=== PATIENT | male | born 1945 | race Caucasian/White ===

== ENCOUNTER 2016-10-13 14:54 | Inpatient (IN) | payer MEDICARE, OTHER ==
[2016-10-13] MEDS ORDERED: SODIUM CHLORIDE 0.9% 500 ML IV STA (15:00)
--- NOTE | 2016-10-13 15:16 | ED ---
General Adult HPI - General Chief complaint: Seizure Stated complaint: Seizure Time Seen by Provider: 10/13/16 15:00 Source: patient, family, RN notes reviewed Mode of arrival: EMS Limitations: no limitations - History of Present Illness Initial comments: This is a 70-year-old male with a past medical history significant for seizures. states he takes seizure medication but she doesn't know what they are. states he does not have seizures that often however today he did have a seizure and it stopped on its own EMS was called when they arrived scene he was post ictal. When the patient was in the ambulance had another seizure they gave him 5 of Versed. The seizures stopped after the Versed. Patient remains postictal at this time. states recently he's been feeling fine is been no fever chills or cough. His been BEEN no illegal drug use. The patient has not complained of any chest pain or abdominal pain there's been no complaints of any dysuria hematuria urinary frequency. states his postictal states usually lasts hours. - Related Data Home Medications Medication Instructions Recorded Confirmed Lisinopril [Prinivil] 5 mg PO DAILY 03/28/14 10/13/16 Simvastatin [Zocor] 40 mg PO DAILY 03/28/14 10/13/16 levETIRAcetam [Keppra] 750 mg PO HS 03/28/14 10/13/16 Clopidogrel [Plavix] 75 mg PO DAILY 10/13/16 10/13/16 Metoprolol Succinate (ER) [Toprol 50 mg PO DAILY 10/13/16 10/13/16 Xl] levETIRAcetam [Keppra] 500 mg PO QAM 10/13/16 10/13/16 Allergies Allergy/AdvReac Type Severity Reaction Status Date / Time No Known Allergies Allergy Verified 10/13/16 14:55 Review of Systems ROS Statement: Those systems with pertinent positive or pertinent negative responses have been documented in the HPI. ROS Other: All systems not noted in ROS Statement are negative. Past Medical History Past Medical History: Hyperlipidemia, Seizure Disorder History of Any Multi-Drug Resistant Organisms: None Reported Past Surgical History: No Surgical Hx Reported Past Psychological History: No Psychological Hx Reported Smoking Status: Current every day smoker Past Alcohol Use History: None Reported Past Drug Use History: None Reported General Exam - General Exam Comments Initial Comments: GENERAL: Patient is well-developed and well-nourished. Patient is nontoxic and well- hydrated and is in no acute distress. ENT: Neck is soft and supple. No significant lymphadenopathy is noted. Oropharynx is clear. Moist mucous membranes. Neck has full range of motion without eliciting any pain. EYES: The sclera were anicteric and conjunctiva were pink and moist. Extraocular movements were intact and pupils were equal round and reactive to light. Eyelids were unremarkable. PULMONARY: Unlabored respirations. Good breath sounds bilaterally. No audible rales rhonchi or wheezing was noted. CARDIOVASCULAR: There is a regular rate and rhythm without any murmurs gallops or rubs. ABDOMEN: Soft and nontender with normal bowel sounds. SKIN: Skin is clear with no lesions or rashes and otherwise unremarkable. NEUROLOGIC: Patient postictal right now he responds to painful stimuli and loud verbal Cranial nerves II through XII are grossly intact. Motor and sensory are also intact. MUSCULOSKELETAL: Normal extremities with adequate strength and full range of motion. No lower extremity swelling or edema. No calf tenderness. LYMPHATICS: No significant lymphadenopathy is noted PSYCHIATRIC: Unable to assess at this time. Limitations: no limitations Course Vital Signs 10/13/16 10/13/16 14:55 15:04 Temperature 97.5 F L Pulse Rate 90 78 Respiratory 20 20 Rate Blood Pressure 77/50 94/55 O2 Sat by Pulse 90 L 95 Oximetry Medical Decision Making - Medical Decision Making EKG shows normal sinus rhythm at 76 bpm [place] interval is 152 QRS is 82 QT interval 398 QTC is 447. Patient's EKG shows no ST segment elevation or depression or T wave abnormalities are noted. - Lab Data Result diagrams: 10/13/16 15:15 10/13/16 15:15 Lab Results 10/13/16 10/13/16 10/13/16 Range/Units 15:15 15:15 15:47 WBC 4.9 (3.8-10.6) k/uL RBC 4.44 (4.30-5.90) m/uL Hgb 14.1 (13.0-17.5) gm/dL Hct 40.7 (39.0-53.0) % MCV 91.6 (80.0-100.0) fL MCH 31.8 (25.0-35.0) pg MCHC 34.8 (31.0-37.0) g/dL RDW 12.9 (11.5-15.5) % Plt Count 129 L (150-450) k/uL Neutrophils % 76 % Lymphocytes % 16 % Monocytes % 5 % Eosinophils % 1 % Basophils % 0 % Neutrophils # 3.7 (1.3-7.7) k/uL Lymphocytes # 0.8 L (1.0-4.8) k/uL Monocytes # 0.3 (0-1.0) k/uL Eosinophils # 0.1 (0-0.7) k/uL Basophils # 0.0 (0-0.2) k/uL Sodium 142 (137-145) mmol/L Potassium 4.0 (3.5-5.1) mmol/L Chloride 108 H (98-107) mmol/L Carbon Dioxide 16 L (22-30) mmol/L Anion Gap 18 mmol/L BUN 10 (9-20) mg/dL Creatinine 1.00 (0.66-1.25) mg/dL Est GFR (MDRD) Af Amer >60 (>60 ml/min/1.73 sqM) Est GFR (MDRD) Non-Af >60 (>60 ml/min/1.73 sqM) Glucose 133 H (74-99) mg/dL Calcium 9.5 (8.4-10.2) mg/dL Total Bilirubin 0.6 (0.2-1.3) mg/dL AST 32 (17-59) U/L ALT 25 (21-72) U/L Alkaline Phosphatase 68 (38-126) U/L Total Protein 6.9 (6.3-8.2) g/dL Albumin 4.2 (3.5-5.0) g/dL Urine Color Yellow Urine Appearance Clear (Clear) Urine pH 6.0 (5.0-8.0) Ur Specific [place] 1.007 (1.001-1.035) Urine Protein 1+ H (Negative) Urine Glucose (UA) Negative (Negative) Urine Ketones Negative (Negative) Urine Blood Negative (Negative) Urine Nitrite Negative (Negative) Urine Bilirubin Negative (Negative) Urine Urobilinogen <2.0 (<2.0) mg/dL Ur Leukocyte Esterase Negative (Negative) Urine RBC 1 (0-5) /hpf Urine WBC 1 (0-5) /hpf Ur Squamous Epith Cells <1 (0-4) /hpf Hyaline Casts 3 H (0-2) /lpf Urine Mucus Rare H (None) /hpf Urine Sperm Few H (None) /hpf Urine Opiates Screen Not Detected (NotDetected) Ur Oxycodone Screen Not Detected (NotDetected) Urine Methadone Screen Not Detected (NotDetected) Ur Propoxyphene Screen Not Detected (NotDetected) Ur Barbiturates Screen Not Detected (NotDetected) Phenytoin <3.0 ug/mL Valproic Acid <10.0 ug/mL Carbamazepine <3.0 ug/mL U Tricyclic Antidepress Not Detected (NotDetected) Ur Phencyclidine Scrn Not Detected (NotDetected) Ur Amphetamines Screen Not Detected (NotDetected) U Methamphetamines Scrn Not Detected (NotDetected) U Benzodiazepines Scrn Not Detected (NotDetected) Urine Cocaine Screen Not Detected (NotDetected) U Marijuana (THC) Screen Not Detected (NotDetected) Disposition Clinical Impression: Generalized seizure, Post-ictal state Disposition: ADMITTED IP TO THIS [facility] Referrals: Norman Stoddard MD [Primary Care Provider] - 1-2 days Time of Disposition: 16:30
[2016-10-13 15:26] LABS: Basophils % (A) 0 %; CH 31.3; CHCM 34.3; Eosinophils # (A) 0.1 k/uL (0-0.7); Eosinophils % (A) 1 %; HCT 40.7 % (39.0-53.0); HDW 2.45; HGB 14.1 gm/dL (13.0-17.5); Luc # (Auto) 0.07; Luc % (Auto) 2; Lymphocytes # (A) 0.8 k/uL (1.0-4.8); Lymphocytes % (A) 16 %; MCH 31.8 pg (25.0-35.0); MCHC 34.8 g/dL (31.0-37.0); MCV 91.6 fL (80.0-100.0); Mean Platelet Volume 7.5; Monocytes # (A) 0.3 k/uL (0-1.0); Monocytes % (A) 5 %; Neutrophils # (A) 3.7 k/uL (1.3-7.7); Neutrophils % (A) 76 %; RBC 4.44 m/uL (4.30-5.90); RDW 12.9 % (11.5-15.5); WBC 4.9 k/uL (3.8-10.6); WBC (Perox) 4.71
[2016-10-13 15:40] LABS: ALT 25 U/L (21-72); AST 32 U/L (17-59); Alkaline Phosphatase 68 U/L (38-126); Anion Gap 18 mmol/L; Blood Urea Nitrogen 10 mg/dL (9-20); Calcium 9.5 mg/dL (8.4-10.2); Carbamazepine (Tegretol) <3.0 ug/mL; Carbon Dioxide 16 mmol/L (22-30); Chloride 108 mmol/L (98-107); Glucose 133 mg/dL (74-99); Non-African American GFR(MDRD) >60 (>60 ml/min/1.73 sqM); Sodium 142 mmol/L (137-145); Total Bilirubin 0.6 mg/dL (0.2-1.3); Total Protein 6.9 g/dL (6.3-8.2)
[2016-10-13 16:11] LABS: Appearance,Urine Clear (Clear); Bilirubin,Urine Negative (Negative); Glucose,Urine (UA) Negative (Negative); Ketones,Urine Negative (Negative); Leukocyte Esterase,Urine Negative (Negative); Mucus,Urine Rare /hpf; Nitrite,Urine Negative (Negative); Particle Count 7766; Protein,Urine 1+ (Negative); RBC,Urine 1 /hpf (0-5); Specific Gravity,Urine 1.007 (1.001-1.035); Sperm,Urine Few /hpf; Squamous Epithelial Cell,Urine <1 /hpf (0-4); UA Billing (MACRO vs. MICRO) MICRO; Urobilinogen,Urine <2.0 mg/dL (<2.0); WBC,Urine 1 /hpf (0-5)
[2016-10-13] MEDS ORDERED: SODIUM CHLORIDE 0.9% 1,000 ML IV ONE (16:30)
[2016-10-13] MEDS ORDERED: LORazepam 2 MG/ML SYRINGE IV PRN (16:32)
[2016-10-13 17:49] VITALS: RESP 16
[2016-10-13 18:35] VITALS: BMI 22.0
[2016-10-13] MEDS: levETIRAcetam 500 MG TAB PO SCH (21:07)
--- NOTE | 2016-10-14 07:41 | CT ---
EXAMINATION TYPE: CT brain wo con DATE OF EXAM: 10/14/2016 COMPARISON: 03/28/2014 HISTORY: Seizures CT DLP: 995.50 mGycm Automated exposure control for dose reduction was used. FINDINGS: There is cerebral cortical atrophy. There is no mass effect nor midline shift. There is no sign of in tracranial hemorrhage. There is old 3 cm infarct in the medial right occipital lobe. Calvarium is int act. 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 NO ACUTE ABNORMALITY. NO CHANGE.
[2016-10-14 08:24] VITALS: BP 87/48; PULSE 59; TEMP 97.2
[2016-10-14] MEDS ORDERED: CLOPIDOGREL 75 MG TAB PO SCH (09:00)
[2016-10-14] MEDS ORDERED: LISINOPRIL 5 MG TAB PO SCH (09:00)
[2016-10-14] MEDS ORDERED: ATORVASTATIN 20 MG TAB PO SCH (09:00)
[2016-10-14] MEDS ORDERED: METOPROLOL SUCCINATE (ER) 50 MG TAB.ER.24H PO SCH (09:00)
[2016-10-14] MEDS ORDERED: levETIRAcetam 500 MG TAB PO SCH (09:00)
[2016-10-14] MEDS: levETIRAcetam 500 MG TAB PO SCH (09:03)
--- NOTE | 2016-10-14 13:01 | P.CNNES ---
History of Present Illness Consult date: 10/13/16 Requesting physician: Fredy Wen Reason for Consult: seizure Chief complaint: seizure History of Present Illness: The patient is a pleasant 70-year-old male who has history of seizure disorder. The patient is not a good historian. He states he started having seizures a few years ago. In reviewing his home medications, he is on Keppra 500 mg in the morning and 750 mg at night. The patient was brought into [facility] emergency room after he had a witnessed seizure at home. The seizure was described as a generalized tonic-clonic seizure with postictal confusion. EMS was called and he had another seizure en route to the emergency room. He was given Versed 5 mg IV which did stop the seizure. In the emergency room, his laboratory workup showed a normal comprehensive metabolic profile, urinalysis, and urine drug screen. He did not have a computed tomography scan of the brain. His CBC was normal except for mild thrombocytopenia at 129,000. At the time of my evaluation, the patient is laying in his bed then appears to be in no acute distress. He follows commands appropriately but does seem somewhat confused. He denies any headaches or fevers. He denies any recent head injuries. The patient does have a history of stroke and does take Plavix 75 mg daily. Review of Systems All systems: negative Constitutional: Denies chills, Denies fever Eyes: denies blurred vision, denies pain Ears, nose, mouth and throat: Denies headache, Denies sore throat Cardiovascular: Denies chest pain, Denies shortness of breath Respiratory: Denies cough Gastrointestinal: Denies abdominal pain, Denies diarrhea, Denies nausea, Denies vomiting Musculoskeletal: Denies myalgias Integumentary: Denies pruritus, Denies rash Neurological: Reports memory loss, Reports seizures, Denies numbness, Denies weakness Psychiatric: Denies anxiety, Denies depression Endocrine: Denies fatigue, Denies weight change Past Medical History Past Medical History: CVA/TIA, Hyperlipidemia, Seizure Disorder History of Any Multi-Drug Resistant Organisms: None Reported Past Surgical History: No Surgical Hx Reported Additional Past Surgical History / Comment(s): aoetic valve surgery 2010 Past Psychological History: No Psychological Hx Reported Smoking Status: Current every day smoker Past Drug Use History: None Reported - Past Family History Mother Family Medical History: Diabetes Mellitus, Myocardial Infarction ([place]) Father History Unknown: Yes Medications and Allergies Home Medications Medication Instructions Recorded Confirmed Type Lisinopril [Prinivil] 5 mg PO DAILY 03/28/14 10/13/16 History Simvastatin [Zocor] 40 mg PO DAILY 03/28/14 10/13/16 History Clopidogrel [Plavix] 75 mg PO DAILY 10/13/16 10/13/16 History Metoprolol Succinate (ER) [Toprol 50 mg PO DAILY 10/13/16 10/13/16 History XL] Allergies Allergy/AdvReac Type Severity Reaction Status Date / Time No Known Allergies Allergy Verified 10/13/16 14:55 Physical Examination - Vital Signs Vital Signs: Vital Signs Temp Pulse Pulse Resp BP BP Pulse Ox 10/14/16 08:00 59 L 16 10/14/16 07:00 97.2 F L 59 L 16 87/48 96 10/14/16 00:00 74 16 10/13/16 23:00 97.0 F L 74 16 111/59 99 10/13/16 17:15 97.7 F 58 L 16 131/60 100 10/13/16 16:42 60 18 100/69 100 10/13/16 15:04 78 20 94/55 95 10/13/16 14:55 97.5 F L 90 20 77/50 90 L Intake and Output 10/13/16 10/14/16 10/14/16 22:59 06:59 14:59 Intake Total 590 800 Output Total 200 Balance 590 600 Intake: Intake, IV Titration 800 Amount Sodium Chloride 0.9% 1, 800 000 ml @ 100 mls/hr IV . Q10H ONE Rx#:[id number] Oral 590 Output: Urine 200 Other: Voiding Method Urinal Urinal # Voids 1 Weight 71.668 kg - Constitutional General appearance: average body habitus, cooperative - EENT EENT: ATNC, hearing intact - Cardiovascular Cardiovascular: regular rate Extremities: no peripheral edema bilaterally, no clubbing, cyanosis - Gastrointestinal Gastrointestinal: soft, tender, non-distended - Neurologic Cranial nerve examination: EOMI Speech examination: intact Sensorimotor examination: intact Detailed motor examination: full strength in all major muscle groups Motor examination - right side: 5/5: biceps, triceps, wrist flexion, wrist extension, 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, hip flexors, knee extensors, dorsiflexion, toe extension (L) , plantarflexion Motor examination - left side: 08/15: biceps, triceps, wrist flexion, wrist extension, 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, hip flexors, knee extensors, dorsiflexion, toe extension (EHL) , plantarflexion Detailed sensory examination: intact Cerebellar examination: other (Postural tremors are seen in bilateral upper extremities.) Results - Laboratory Findings CBC and BMP: 10/13/16 15:15 10/13/16 15:15 Abnormal Lab Findings: Abnormal Labs 10/13/16 10/13/16 10/13/16 15:15 15:15 15:47 Plt Count 129 L Lymphocytes # 0.8 L Chloride 108 H Carbon Dioxide 16 L Glucose 133 H Urine Protein 1+ H Hyaline Casts 3 H Urine Mucus Rare H Urine Sperm Few H Assessment and Plan (1) Altered mental state Status: Acute (2) Thrombocytopenia Status: Acute (3) Tremor Status: Chronic (4) Generalized seizure Status: Acute (5) History of stroke Status: Chronic Plan: The patient did have a witnessed generalized tonic-clonic seizure and appears to have had 2 in the past 24 hours. I had a lengthy discussion with him regarding treatment options. I will increase his Keppra to 1000 mg twice a day. I will order a computed tomography scan of the brain and an EEG. Continue seizure precautions and neuro checks. The patient was told that he is not to drive or operate any heavy machinery for a period of 6 months. As for his history of stroke, a repeat computed tomography scan has been ordered. Continue Plavix 75 mg daily. 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 I discussed with him treatment options but he states that this is not affecting his normal daily activity at this time. This will be discussed further in outpatient clinic. Continue the rest of your current workup and management. I will continue to follow with you. Further recommendations to follow. Thank you for allowing me to participate in the care of your patient. If you have any questions, please feel free to contact me. Time with Patient: Greater than 30
--- NOTE | 2016-10-19 13:38 | HP ---
DATE OF SERVICE: 10/13/2016 CHIEF COMPLAINT: Seizure disorder. HISTORY OF PRESENT ILLNESS: This 70-year-old gentleman with a past medical history of multiple medical problems has a history of CVA, TIA, seizure disorder. The patient is taking Keppra 750 mg. The patient apparently had multiple seizures and EMS was called and saw the patient postictally. Patient was given Versed and the patient was transferred to [facility] and admitted for further evaluation. The patient is slightly drowsy at this time. There is no history of any fever, rigor, chills. No history of any chest pain, palpitations, hematochezia, melena at this time. PAST MEDICAL HISTORY: 1. CVA, TIA. 2. Hypertension. 3. Seizure disorder. MEDICATIONS: 1. Keppra, as mentioned earlier. 2. Zocor 40 mg. 3. Prinivil 5 mg. 4. Plavix 75 mg. ALLERGIES: NONE. FAMILY HISTORY: History of diabetes mellitus and myocardial infarction in the family. SOCIAL HISTORY: Smoking. No history of alcohol intake. REVIEW OF SYSTEMS: ENT: No diminished hearing. No diminished vision. CARDIOVASCULAR SYSTEM: No angina. RESPIRATORY SYSTEM: As mentioned earlier. GI: No nausea, vomiting. : No dysuria, retention. NERVOUS SYSTEM: As mentioned earlier. ALLERGY/IMMUNOLOGY: No asthma, hayfever. MUSCULOSKELETAL: As mentioned earlier. HEMATOLOGY/ONCOLOGY: No history of anemia. ENDOCRINE: No history of diabetes or hypothyroidism. CONSTITUTIONAL: As mentioned earlier. DERMATOLOGIC: Negative. RHEUMATOLOGIC: Negative. PSYCHIATRY: As mentioned earlier. PHYSICAL EXAMINATION: Patient is alert and oriented x3. Pulse is 78, blood pressure 94/55, respirations 20, temperature 97.5, pulse ox 94% on 2 L. HEENT: Conjunctivae normal. NECK: No jugular venous congestion. CARDIAC: S1, S2 muffled. RESPIRATORY: Breath sounds diminished at the bases. A few scattered rhonchi. No crackles. ABDOMEN: Soft, non-tender. No mass palpable. LEGS: No edema. No swelling. NERVOUS SYSTEM: Higher functions as mentioned earlier. Moves all 4 limbs. No focal motor or sensory deficit. LYMPHATICS: No lymph node palpable in neck, axillae or groin. SKIN: No ulcer, rash or bleeding. JOINTS: No active deforming arthropathy. LABS: CBC shows platelets 129. Other labs are noted. ASSESSMENT: 1. Acute generalized tonic clonic seizures with breakthrough seizures. 2. History of seizures. 3. Hypertension. 4. Hyperlipidemia. 5. History of cerebrovascular accident, transient ischemic attack. RECOMMENDATIONS AND DISCUSSION: I recommend to continue current medications, continue symptomatic treatment. Increase the dose of Keppra. Closely follow with Neurology. Guarded prognosis. Further recommendations to follow. Discussed with the patient. MTDD
--- NOTE | 2016-10-20 14:58 | DS ---
FINAL DIAGNOSES: 1. Recurrent seizures, generalized tonic clonic, breakthrough seizures. 2. Seizure disorder. 3. Hyperlipidemia. 4. History of cerebrovascular accident/transient ischemic accident. DISCHARGE DISPOSITION: The patient is being discharged in stable condition with guarded prognosis. HISTORY OF PRESENT ILLNESS: This 70 year old gentleman admitted with seizure disorder, monitored closely. Dr. Jacome saw the patient. medications adjusted. On examination, vital signs stable. Cardiovascular: S1, S2. Abdomen soft. Nervous system: No focal deficits. DISCHARGE ADVICE AND MEDICATIONS: 1. Discharge diet is cardiac. 2. Activity limited until follow up. 3. Follow with Dr. Jacome as advised. 4. Follow with DrMaria Eugenia . 5. Keppra 1000 mg po b.i.d. increased dose. 6. Zocor 40 mg daily. 7. Toprol 50 mg XL daily. 8. Prinivil 5 mg po daily. 9. Plavix 75 mg daily. MTDD
== END 2016-10-14 13:40 | disposition home or self-care (01) | DRG 101 ==
LOC: EC 14:54 → 5MS5E 16:30
PROVIDERS: ADMIT Internal Medicine; ATTEND Internal Medicine
DX: G40.409 Other generalized epilepsy and epileptic syndromes, not intractable, without status epilepticus (principal); F05 Delirium due to known physiological condition; D69.6 Thrombocytopenia, unspecified; I10 Essential (primary) hypertension; F17.200 Nicotine dependence, unspecified, uncomplicated; R25.1 Tremor, unspecified; E78.5 Hyperlipidemia, unspecified; Z86.73 Personal history of transient ischemic attack (TIA), and cerebral infarction without residual deficits; Z79.02 Long term (current) use of antithrombotics/antiplatelets; Z79.899 Other long term (current) drug therapy
CPT/HCPCS: 36415; 70450; 80053; 80156; 80164; 80177; 80185; 80306; 81001; 85025; 93005; 99285

== ENCOUNTER 2017-09-17 20:13 | Emergency (ER) | payer MEDICARE, OTHER ==
--- NOTE | 2017-09-17 20:25 | ED ---
General Adult HPI <Gail Moore - Last Filed: 09/18/17 01:29> <Harpal Cat - Last Filed: 09/18/17 05:57> - General Stated complaint: ETOH Time Seen by Provider: 09/17/17 20:25 - History of Present Illness Initial comments: Oseas Kim is a 71 yo M who is brought to the emergency department today via EMS for evaluation of alcohol intoxication and possible injury. The patient reports that today he drank approximately 12 beers, he states that he started walking and got confused about where he was going, he then states he tripped and fell into a ditch filled with water where he was found by EMS and brought to the hospital. states that he doesn't drink every day but when he does drink he only drinks beer. He believes he drank about 12 beers today. Patient denies any complaints, he denies any injuries, he has been ambulatory since falling into the ditch. He is uncertain how long ago he fell. (Gail Moore) - Related Data Home Medications Medication Instructions Recorded Confirmed Aspirin [Adult Low Dose Aspirin EC] 81 mg PO DAILY 09/17/17 09/17/17 Allergies Allergy/AdvReac Type Severity Reaction Status Date / Time No Known Allergies Allergy Verified 09/17/17 20:53 Review of Systems ROS Other: All systems not noted in ROS Statement are negative. <Gail Moore - Last Filed: 09/18/17 01:29> ROS Other: All systems not noted in ROS Statement are negative. <Harpal Cat - Last Filed: 09/18/17 05:57> ROS Statement: Those systems with pertinent positive or pertinent negative responses have been documented in the HPI. ROS limited by patient intoxication, he repeatedly states that he is fine and has no complaints but brushes off specific questions (Gail Moore) Past Medical History Past Medical History: CVA/TIA, Hyperlipidemia, Seizure Disorder History of Any Multi-Drug Resistant Organisms: None Reported Past Surgical History: No Surgical Hx Reported Additional Past Surgical History / Comment(s): aoetic valve surgery 2010 Past Psychological History: No Psychological Hx Reported Smoking Status: Current every day smoker Past Drug Use History: None Reported - Past Family History Mother Family Medical History: Diabetes Mellitus, Myocardial Infarction ([place]) Father History Unknown: Yes <Gail Moore - Last Filed: 09/18/17 01:29> General Exam Limitations: no limitations General appearance: alert, other (Closer wet and dirty, there is dirt and debris on the patient's head and entire body.) Head exam: Present: atraumatic, normocephalic Eye exam: Present: normal appearance, PERRL ENT exam: Present: normal exam Neck exam: Present: full ROM (Refusing a cervical collar). Absent: tenderness Respiratory exam: Present: normal lung sounds bilaterally. Absent: respiratory distress Cardiovascular Exam: Present: regular rate, normal rhythm GI/Abdominal exam: Present: soft. Absent: distended Rectal exam: Present: deferred Extremities exam: Present: normal inspection, full ROM, normal capillary refill. Absent: tenderness Back exam: Present: normal inspection Neurological exam: Present: alert, oriented X3 <Gail Moore - Last Filed: 09/18/17 01:29> Course <Gail Moore - Last Filed: 09/18/17 01:29> <Harpal Cat - Last Filed: 09/18/17 05:57> Vital Signs 09/17/17 09/17/17 09/18/17 20:22 23:35 01:27 Temperature 96.8 F L Pulse Rate 63 54 L 55 L Respiratory 16 16 16 Rate Blood Pressure 143/67 135/62 111/68 O2 Sat by Pulse 98 98 96 Oximetry 09/18/17 03:29 Temperature 98.0 F Pulse Rate 66 Respiratory 16 Rate Blood Pressure 124/63 O2 Sat by Pulse 96 Oximetry PATIENT is reassessed at 550, he has been now walking around and he is stable on his feet and he was to go and he has no complaints at all at this point, DC home 6 AM (Harpal Cat) EKG Findings - EKG Comments: EKG Findings:: EKG at 2110. Rate is 54, rhythm is sinus, there is normal axis, normal intervals, there are no acute ST elevations or depressions. <Gail Moore - Last Filed: 09/18/17 01:29> Medical Decision Making - Lab Data Result diagrams: 09/17/17 21:40 09/17/17 21:40 <Gail Moore - Last Filed: 09/18/17 01:29> - Lab Data Result diagrams: 09/17/17 21:40 09/17/17 21:40 <Harpal Cat - Last Filed: 09/18/17 05:57> - Medical Decision Making The patient was seen and evaluated, history was obtained from the patient as well as EMS Patient is clearly intoxicated, he has no obvious injuries but is covered in dirt and soaking wet, and noted to be mildly hypothermic A trauma workup was ordered CT of the head and neck with no acute injuries. Chest and pelvis x-rays were also unremarkable. There is no obvious injury on workup. Labs reveal mildly elevated CK-MB, likely related to recent trauma. Alcohol level was elevated, estimated that the patient will be sober around 3 AM. Patient resting comfortably in bed, is cooperative with staff. Patient still has slurred speech and appears intoxicated. He attempted to contact his friends using his cell phone but no one was available to give him a ride home. I will order repeat ethanol level for reevaluation. She care is signed out to Dr. Cat who will follow-up on the patient's ethanol level and discharge the patient when medically sober. (Gail Moore) - Lab Data Lab Results 09/17/17 09/17/17 09/17/17 Range/Units 21:00 21:40 21:40 WBC (3.8-10.6) k/uL RBC (4.30-5.90) m/uL Hgb (13.0-17.5) gm/dL Hct (39.0-53.0) % MCV (80.0-100.0) fL MCH (25.0-35.0) pg MCHC (31.0-37.0) g/dL RDW (11.5-15.5) % Plt Count (150-450) k/uL Neutrophils % % Lymphocytes % % Monocytes % % Eosinophils % % Basophils % % Neutrophils # (1.3-7.7) k/uL Lymphocytes # (1.0-4.8) k/uL Monocytes # (0-1.0) k/uL Eosinophils # (0-0.7) k/uL Basophils # (0-0.2) k/uL PT (9.0-12.0) sec INR (<1.2) APTT (22.0-30.0) sec Sodium 143 (137-145) mmol/L Potassium 4.6 (3.5-5.1) mmol/L Chloride 105 (98-107) mmol/L Carbon Dioxide 25 (22-30) mmol/L Anion Gap 13 mmol/L BUN 6 L (9-20) mg/dL Creatinine 0.67 (0.66-1.25) mg/dL Est GFR (CKD-EPI)AfAm >90 (>60 ml/min/1.73 sqM) Est GFR (CKD-EPI)NonAf >90 (>60 ml/min/1.73 sqM) Glucose 100 H (74-99) mg/dL Calcium 9.2 (8.4-10.2) mg/dL Total Bilirubin 0.5 (0.2-1.3) mg/dL AST 49 (17-59) U/L ALT 32 (21-72) U/L Alkaline Phosphatase 80 (38-126) U/L Total Creatine Kinase 199 H (55-170) U/L CK-MB (CK-2) 5.0 H* (0.0-2.4) ng/mL CK-MB (CK-2) Rel Index 2.5 Troponin I <0.012 (0.000-0.034) ng/mL Total Protein 7.0 (6.3-8.2) g/dL Albumin 4.1 (3.5-5.0) g/dL Urine Color Light Yellow Urine Appearance Clear (Clear) Urine pH 5.5 (5.0-8.0) Ur Specific [place] 1.002 (1.001-1.035) Urine Protein Negative (Negative) Urine Glucose (UA) Negative (Negative) Urine Ketones Negative (Negative) Urine Blood Negative (Negative) Urine Nitrite Negative (Negative) Urine Bilirubin Negative (Negative) Urine Urobilinogen <2.0 (<2.0) mg/dL Ur Leukocyte Esterase Negative (Negative) Urine Opiates Screen Not Detected (NotDetected) Ur Oxycodone Screen Not Detected (NotDetected) Urine Methadone Screen Not Detected (NotDetected) Ur Propoxyphene Screen Not Detected (NotDetected) Ur Barbiturates Screen Not Detected (NotDetected) U Tricyclic Antidepress Not Detected (NotDetected) Ur Phencyclidine Scrn Not Detected (NotDetected) Ur Amphetamines Screen Not Detected (NotDetected) U Methamphetamines Scrn Not Detected (NotDetected) U Benzodiazepines Scrn Not Detected (NotDetected) Urine Cocaine Screen Not Detected (NotDetected) U Marijuana (THC) Screen Not Detected (NotDetected) Serum Alcohol 189 mg/dL 09/17/17 09/17/17 09/18/17 Range/Units 21:40 21:40 03:20 WBC 3.8 (3.8-10.6) k/uL RBC 4.90 (4.30-5.90) m/uL Hgb 15.1 (13.0-17.5) gm/dL Hct 45.4 (39.0-53.0) % MCV 92.6 (80.0-100.0) fL MCH 30.9 (25.0-35.0) pg MCHC 33.3 (31.0-37.0) g/dL RDW 12.3 (11.5-15.5) % Plt Count 144 L (150-450) k/uL Neutrophils % 55 % Lymphocytes % 32 % Monocytes % 8 % Eosinophils % 2 % Basophils % 0 % Neutrophils # 2.1 (1.3-7.7) k/uL Lymphocytes # 1.2 (1.0-4.8) k/uL Monocytes # 0.3 (0-1.0) k/uL Eosinophils # 0.1 (0-0.7) k/uL Basophils # 0.0 (0-0.2) k/uL PT 11.4 (9.0-12.0) sec INR 1.2 H (<1.2) APTT 23.6 (22.0-30.0) sec Sodium (137-145) mmol/L Potassium (3.5-5.1) mmol/L Chloride (98-107) mmol/L Carbon Dioxide (22-30) mmol/L Anion Gap mmol/L BUN (9-20) mg/dL Creatinine (0.66-1.25) mg/dL Est GFR (CKD-EPI)AfAm (>60 ml/min/1.73 sqM) Est GFR (CKD-EPI)NonAf (>60 ml/min/1.73 sqM) Glucose (74-99) mg/dL Calcium (8.4-10.2) mg/dL Total Bilirubin (0.2-1.3) mg/dL AST (17-59) U/L ALT (21-72) U/L Alkaline Phosphatase (38-126) U/L Total Creatine Kinase (55-170) U/L CK-MB (CK-2) (0.0-2.4) ng/mL CK-MB (CK-2) Rel Index Troponin I (0.000-0.034) ng/mL Total Protein (6.3-8.2) g/dL Albumin (3.5-5.0) g/dL Urine Color Urine Appearance (Clear) Urine pH (5.0-8.0) Ur Specific [place] (1.001-1.035) Urine Protein (Negative) Urine Glucose (UA) (Negative) Urine Ketones (Negative) Urine Blood (Negative) Urine Nitrite (Negative) Urine Bilirubin (Negative) Urine Urobilinogen (<2.0) mg/dL Ur Leukocyte Esterase (Negative) Urine Opiates Screen (NotDetected) Ur Oxycodone Screen (NotDetected) Urine Methadone Screen (NotDetected) Ur Propoxyphene Screen (NotDetected) Ur Barbiturates Screen (NotDetected) U Tricyclic Antidepress (NotDetected) Ur Phencyclidine Scrn (NotDetected) Ur Amphetamines Screen (NotDetected) U Methamphetamines Scrn (NotDetected) U Benzodiazepines Scrn (NotDetected) Urine Cocaine Screen (NotDetected) U Marijuana (THC) Screen (NotDetected) Serum Alcohol 110 mg/dL Disposition Is patient prescribed a controlled substance at d/c from ED?: No <Gail Moore - Last Filed: 09/18/17 01:29> Is patient prescribed a controlled substance at d/c from ED?: No <Harpal Cat - Last Filed: 09/18/17 05:57> Clinical Impression: Alcoholic intoxication Disposition: HOME SELF-CARE Instructions: Alcohol Intoxication (ED) Referrals: Norman Stoddard MD [Primary Care Provider] - 1-2 days
[2017-09-17 20:32] VITALS: RESP 16
[2017-09-17 21:21] LABS: Appearance,Urine Clear (Clear); Bilirubin,Urine Negative (Negative); Blood,Urine Negative (Negative); Color,Urine Light Yellow; Glucose,Urine (UA) Negative (Negative); Ketones,Urine Negative (Negative); Leukocyte Esterase,Urine Negative (Negative); Nitrite,Urine Negative (Negative); PH, Urine 5.5 (5.0-8.0); Protein,Urine Negative (Negative); Specific Gravity,Urine 1.002 (1.001-1.035); Urobilinogen,Urine <2.0 mg/dL (<2.0)
[2017-09-17 21:34] LABS: Amphetamine Screen,Urine Not Detected (NotDetected); Barbiturate Screen,Urine Not Detected (NotDetected); Benzodiazepines Screen,Urine Not Detected (NotDetected); Cocaine Screen,Urine Not Detected (NotDetected); Methadone Screen, Urine Not Detected (NotDetected); Opiate Screen,Urine Not Detected (NotDetected); Oxycodone Screen, Urine Not Detected (NotDetected); Phencyclidine Screen,Urine Not Detected (NotDetected); Tricyclic Antidepressant,Urine Not Detected (NotDetected); Urn Cannabinoid Scrn Not Detected (NotDetected)
[2017-09-17 22:03] LABS: Basophils % (A) 0 %; Eosinophils # (A) 0.1 k/uL (0-0.7); Eosinophils % (A) 2 %; HCT 45.4 % (39.0-53.0); HGB 15.1 gm/dL (13.0-17.5); Lymphocytes # (A) 1.2 k/uL (1.0-4.8); Lymphocytes % (A) 32 %; MCH 30.9 pg (25.0-35.0); MCHC 33.3 g/dL (31.0-37.0); MCV 92.6 fL (80.0-100.0); Mean Platelet Volume 7.6; Monocytes # (A) 0.3 k/uL (0-1.0); Monocytes % (A) 8 %; Neutrophils # (A) 2.1 k/uL (1.3-7.7); Neutrophils % (A) 55 %; Platelet Count 144 k/uL (150-450); RDW 12.3 % (11.5-15.5); WBC 3.8 k/uL (3.8-10.6)
--- NOTE | 2017-09-17 22:03 | XR ---
EXAMINATION TYPE: XR pelvis AP view DATE OF EXAM: 09/17/2017 COMPARISON: NONE HISTORY: Pain TECHNIQUE: Single view FINDINGS: Pelvic ring is intact. Proximal femurs are intact. Sacroiliac joints appear normal. IMPRESSION: No acute abnormality of the pelvis.
--- NOTE | 2017-09-17 22:04 | XR ---
EXAMINATION TYPE: XR chest 1V portable DATE OF EXAM: 09/17/2017 COMPARISON: 04/21/2013 HISTORY: Chest pain chest trauma TECHNIQUE: Single frontal view of the chest is obtained. FINDINGS: There is no heart failure nor confluent pneumonic infiltrate. Costophrenic angles are tyra r. There are chest leads. IMPRESSION: No active cardiopulmonary disease. There is clearing of the atelectasis in the right deacon g compared to old exam.
[2017-09-17 22:11] LABS: ALT 32 U/L (21-72); AST 49 U/L (17-59); Albumin 4.1 g/dL (3.5-5.0); Alkaline Phosphatase 80 U/L (38-126); Anion Gap 13 mmol/L; Blood Urea Nitrogen 6 mg/dL (9-20); Calcium 9.2 mg/dL (8.4-10.2); Carbon Dioxide 25 mmol/L (22-30); Chloride 105 mmol/L (98-107); Glucose 100 mg/dL (74-99); Potassium 4.6 mmol/L (3.5-5.1); Sodium 143 mmol/L (137-145); Total Bilirubin 0.5 mg/dL (0.2-1.3)
[2017-09-17 22:12] LABS: INR 1.2 (<1.2); Partial Thromboplastin Time 23.6 sec (22.0-30.0); Prothrombin Time 11.4 sec (9.0-12.0)
[2017-09-17 22:14] LABS: Alcohol 189 mg/dL
--- NOTE | 2017-09-17 22:14 | CT ---
EXAMINATION TYPE: CT brain [facility] DATE OF EXAM: 09/17/2017 COMPARISON: NONE HISTORY: Confusion. Unresponsive. Neck pain. CT DLP: Fall. mGycm Automated exposure control for dose reduction was used. TECHNIQUE: CT scan of the head and cervical spine are performed without contrast. FINDINGS: There is mild cerebral cortical atrophy. There is no mass effect nor midline shift. There is no sign of intracranial hemorrhage. There is a 4 x 2 cm area of hypodensity in the right occipita l lobe consistent with old cortical infarct. The calvarium is intact. There is some straightening of the cervical vertebra. There is mild narrowing at C5-6 C6-7 disc space s. Facet joints are intact. I see no fracture. The skull base appears intact. IMPRESSION: Old right occipital lobe infarct. Mild atrophy. No acute intracranial abnormality. Mild spondylosis in the lower cervical spine. No fracture.
[2017-09-17 22:15] LABS: Creatine Kinase 199 U/L (55-170)
[2017-09-17 22:27] LABS: Troponin I <0.012 ng/mL (0.000-0.034)
[2017-09-18 06:07] VITALS: BP 120/60; PULSE 60; TEMP 98
== END 2017-09-18 06:08 | disposition home or self-care (01) ==
LOC: EC 20:13
DX: F10.120 Alcohol abuse with intoxication, uncomplicated (principal); F17.200 Nicotine dependence, unspecified, uncomplicated; Z86.73 Personal history of transient ischemic attack (TIA), and cerebral infarction without residual deficits; Z79.82 Long term (current) use of aspirin; Y90.6 Blood alcohol level of 120-199 mg/100 ml; W01.0XXA Fall on same level from slipping, tripping and stumbling without subsequent striking against object, initial encounter; Y93.01 Activity, walking, marching and hiking
CPT/HCPCS: 36415; 70450; 71045; 72125; 72170; 80053; 80306; 80320; 81003; 82550; 82553; 84484; 85025; 85610; 85730; 93005; 99285